=== PATIENT | female | born 1980 | race Asian ===

== ENCOUNTER 2016-10-21 23:14 | Emergency (ER) | payer SELFPAY ==
[~2016-10-21] VITALS: Ht 162.6 cm; Wt 63.5 kg
[2016-10-21] MEDS ORDERED: Solu-MEDROL 40mg Inj ONE (23:38)
[2016-10-21] MEDS ORDERED: DiphenhydrAMINE 50mg/ml Inj ONE (23:38)
[2016-10-21] MEDS ORDERED: Solu-MEDROL 125mg Inj IVP ONE (23:45)
[2016-10-21] MEDS ORDERED: DiphenhydrAMINE 50mg/ml Inj IVP ONE (23:45)
[2016-10-22] MEDS ORDERED: PREDNISONE20 MG ORAL (01:05)
[2016-10-22] MEDS ORDERED: BENADRYL25 MG ORAL (01:05)
--- NOTE | 2016-10-22 01:05 | Emergency Room Report ---
History of Present Illness General Chief Complaint: Allergic Reaction Source: Patient Present Illness HPI Is a 36-year-old female with multiple environmental allergies. She presents with chief complaint allergic reaction. [place] home her face swell up. Unknown etiology. She was symptom in the past. She took 2 Benadryl as and went to sleep. She woke up several hours later and symptom appear to be worse. Slightly itching. No tongue edema. No rest or distress. No nausea no vomiting. Allergies: Coded Allergies: AMOXICILLIN (Verified Allergy, Unknown, 10/21/16) CEPHALEXIN (Verified Allergy, Unknown, 10/21/16) CETIRIZINE (Verified Allergy, Unknown, 10/21/16) PSEUDOEPHEDRINE (Verified Allergy, Unknown, 10/21/16) Patient History Past Medical History: see triage record, old chart reviewed Past Surgical History: none Pertinent Family History: none Social History: Denies: smoking Last Menstrual Period: 3 WEEKS AGO Now: No Immunizations: other Reviewed Nursing Documentation: PMH: Agreed, PSxH: Agreed Review of Systems Eye: Denies: blurred vision, eye pain ENT: Denies: ear pain, nose congestion, throat swelling Respiratory: Denies: cough, shortness of breath Cardiovascular: Denies: chest pain, palpitations Gastrointestinal: Denies: abdominal pain, diarrhea, nausea, vomiting Musculoskeletal: Denies: back pain, joint pain Skin: Denies: rash Neurological: Denies: headache, numbness Endocrine: Denies: increased thirst, increased urine Hematologic/Lymphatic: Denies: easy bruising All Other Systems: negative except mentioned in HPI Physical Exam Vital Signs Date Time Temp Pulse Resp B/P Pulse Ox O2 Delivery O2 Flow Rate FiO2 10/21/16 23:18 98.1 68 18 121/86 98 Room Air vitals normal Sp02 EP Interpretation: reviewed, normal General Appearance: well appearing, no apparent distress, alert Head: normocephalic, atraumatic Eyes: bilateral eye EOMI, bilateral eye PERRL ENT: hearing grossly normal, normal pharynx, other - Puffiness to face and eyelids. No tongue edema Neck: full range of motion, supple, no meningismus Respiratory: chest non-tender, lungs clear, normal breath sounds Cardiovascular #1: regular rate, rhythm, no murmur Gastrointestinal: normal bowel sounds, non tender, no mass, no organomegaly, no bruit, non-distended Musculoskeletal: back normal, gait/station normal, normal range of motion Psychiatric: mood/affect normal Skin: warm/dry Medical Decision Making Diagnostic Impression: Primary Impression: Allergic reaction Qualified Codes: T78.40XA - Allergy, unspecified, initial encounter ER Course patient with unknown allergic reaction. No evidence of end she edema, anaphylaxis or rest or distress. We'll discharge home. Last Vital Signs Date Time Temp Pulse Resp B/P Pulse Ox O2 Delivery O2 Flow Rate FiO2 10/21/16 23:18 98.1 68 18 121/86 98 Room Air Status: improved Disposition: HOME, SELF-CARE Condition: Stable Scripts Prednisone* (PREDNISONE*) 20 Mg Tablet 60 MG ORAL DAILY, #15 TAB Prov: RETA BOURNE M.D. 10/22/16 Diphenhydramine Hcl* (BENADRYL*) 25 Mg Capsule 50 MG ORAL Q6H Y for Itching, #30 CAP Prov: RETA BOURNE M.D. 10/22/16 Patient Instructions: Allergies Additional Instructions: Followup with your DrHarika in 2-3 days. Return if symptom worsen or any respiratory issue. RETA BOURNE M.D. Oct 22, 2016 01:05
[2016-10-22 01:09] VITALS: BP 122/80
== END 2016-10-22 01:14 | disposition home or self-care (01) ==
LOC: EMR 23:25
DX: T78.40XA Allergy, unspecified, initial encounter (principal); X58.XXXA Exposure to other specified factors, initial encounter; R60.0 Localized edema; Z88.0 Allergy status to penicillin; Z88.8 Allergy status to other drugs, medicaments and biological substances
CPT/HCPCS: 96374; 96375; 99284; J1200; J2930